=== PATIENT | male | born 1975 | race Caucasian/White ===

== ENCOUNTER 2019-08-06 15:23 | Inpatient (IN) | payer BC ==
[~2019-08-06] VITALS: Ht 165.1 cm; Wt 67.8 kg
--- NOTE | ~2019-08-06 | EKG ---
[place], [place] ELECTROCARDIOGRAM REPORT NAME: MAGUI WASHINGTON UNIT #: [id number] ROOM: [facility] DOCTOR: DENG DRAFT REPORT BIRTHDATE: [birth year] [facility] Test Date: 2019-08-06 Test Time: 15:51:44 Pat Name: MAGUI WASHINGTON Department: ED Room: [facility] Gender: M Pharmacy Technician Infusion: EDUARDO : 1975 Requested By: CASSIDY YORK DNP Order Number: [id number] Reading MD: Bebe Dillon Measurements Intervals [place] Rate: 60 P: 16 MS: 160 QRS: 62 QRSD: 96 T: 46 QT: 437 QTc: 437 Interpretive Statements Sinus rhythm Electronically Signed On 08-07-2019 11:09:12 PDT by Bebe Dillon CM:EKGRPT:ELECTROCARDIOGRAM REPORT [id number] CASSIDY YORK DNP EPIPHANY DRAFT REPORT CASSIDY YORK DNP
--- NOTE | ~2019-08-06 | CON ---
[place], [place] REPORT OF CONSULTATION NAME: MAGUI WASHINGTON UNIT #: [id number] ROOM: [facility] DOCTOR: STEPHANIE BEVERLY MD BIRTHDATE: [birth year] DOS: 08/07/2019 PULMONARY CONSULTATION EVALUATION AND MANAGEMENT REASON FOR CONSULTATION: Assess the patient for the recurrent pneumonia. HISTORY OF PRESENT ILLNESS: A 43-year-old white male patient who has been known with past history of nephritis with focal segmental glomerulonephrosis diagnosed in 2002, as per the patient. [place], recently moved to live in [place] with his girlfriend. He stated symptoms of getting general weakness and fatigue, coughing with clear sputum expectoration ongoing for the past 10 days. Symptoms noted gradually worsen associated with fever, increase sputum expectoration, shortness of breath and general weakness. The patient denies symptoms of chest pain. Denies symptoms of hemoptysis. He has been brought to the hospital for further assessment. The patient has been diagnosed with acute pneumonia and currently treated in the Intensive Care Unit. He denies any symptoms of wheezing. Shortness of breath occurred last couple of days that occurred with exertion and at rest. REVIEW OF SYSTEMS: CONSTITUTIONAL SYMPTOMS: The patient reported fever of 102 degrees Fahrenheit at home with feeling of general weakness and fatigue. Symptoms has been present 2 days off and on. EYES: Denies any discharge, redness or burning. EAR, NOSE, THROAT SYMPTOMS: Denies sore throat, hoarseness, otalgia, postnasal drainage or epistaxis. CARDIOVASCULAR: Denies anginal pain, edema, or pain in lower extremities. GASTROINTESTINAL SYMPTOMS: Denies dysphagia, nausea, vomiting, diarrhea, abdominal pain, hematemesis, melena, or hematochezia. GENITOURINARY SYMPTOMS: No dysuria, suprapubic pain, or hematuria. MUSCULOSKELETAL: No acute joint pain, redness, or tenderness. SKIN: No lesions or rashes reported. CENTRAL NERVOUS SYSTEM: The patient has been noted with history of migraine headache treated intermittently. There were no symptoms of focal neurologic deficit, seizures or diplopia reported. Remaining systems were reviewed. They were noted all negative. PAST MEDICAL HISTORY: Noted with history of: 1. Focal Segmental glomerulosclerosis. 2. Chronic nicotine dependence. 3. Essential hypertension. 4. Hyperlipidemia. 5. Questionable history of recurrent pneumonia. The patient reported pneumonia when he was 12 years old, then occurred. The patient was diagnosed with acute nephritis in 2002 and last time treated for acute pneumonia was in 04/2018. PAST SURGICAL HISTORY: Noted as: 1. Lumbar laminectomy. 2. Biopsy of the kidney as well. [place], [place] REPORT OF CONSULTATION NAME: MAGUI WASHINGTON UNIT #: [id number] ROOM: [facility] DOCTOR: STEPHANIE BEVERLY MD BIRTHDATE: [birth year] SOCIAL HISTORY: The patient is currently , lives at home. Denies history of alcohol use or illicit drug use. Tobacco use noted from age of [age] years old, 1 pack of cigarettes per day, active use. He does not have any significant occupational related work history. FAMILY HISTORY: History about father was unknown. Mother is living without any known medical illnesses. MEDICATIONS: The medications, which were listed from home as none regular medication reported. PHYSICAL EXAMINATION: GENERAL: A 43-year-old white male patient is currently lying in the bed. Height of 5 feet 5 inches, weight 149 pounds, BMI 24. VITAL SIGNS: Temperature noted 100.9 degree Fahrenheit to normal temperature, respiratory rate range between 14-24. The heart rate of 72-51. The blood pressure 123/57-116/69. Pulse oxygen saturation recorded on room air 98% on 3 liters nasal cannula was 94% saturation. HEENT: Examination shows head was atraumatic. Eyes nonicterus. NECK: Supple. CARDIOVASCULAR: S1, S2 is audible. LUNGS: Noted without any crackles, bilateral moderate expiratory wheezing was present. ABDOMEN: Soft, nontender. Bowel sounds present. EXTREMITIES: Without acute edema, clubbing, cyanosis. MUSCULOSKELETAL: Without acute deformities. CENTRAL NERVOUS SYSTEM: Cranial nerves 2-12 intact. No focal deficit. MUSCULOSKELETAL: Without acute deformity. SKIN: No lesions or rashes. LABORATORY DATA: Lactic acid 08/06/2019 on admission 2.5. CMP that was done yesterday on admission normal BUN and creatinine. Sodium 135. CBC: WBC count 27.3, hemoglobin, hematocrit and platelet count was normal at 88% segmented neutrophils. CBC of yesterday influenza A and B, nasal washing antigen negative. For surveillance lactic acid 2.1. IMAGING STUDIES: CT scan of the head and the cervical spine reported no acute abnormalities of the cervical spine. BMP that was done on 08/07/2019 is normal BUN and creatinine and glucose. Sodium 135. Urine culture preliminary noted no bacterial growth from yesterday. Two-view of the chest x-ray was noted with findings of a large area of consolidation, which was noted mass-like dense in the posterior subsegment of the right upper lobe. Small infiltration in the superior segment of the right lower lobe cannot be excluded. There were no visible pleural fluid significant on the chest x-ray. There were no past chest x-rays available for comparison. IMPRESSION: 1. The patient will be currently admitted to the hospital noted with acute pneumonia, community-acquired, likely cause with consideration of a [place], [place] REPORT OF CONSULTATION NAME: MAGUI WASHINGTON UNIT #: [id number] ROOM: [facility] DOCTOR: STEPHANIE BEVERLY MD BIRTHDATE: [birth year] streptococcal pneumonia and atypical organisms. 2. History of focal segmental glomerulosclerosis was also noted stable. 3. The patient with acute onset of chronic obstructive pulmonary disease/bronchial asthma, current admission and acute pneumonia. 4. History of chronic nicotine dependence. Currently, the patient is not noted with diagnosis of recurrent pneumonia, historically. PLAN OF MANAGEMENT: Continuation of the antibiotics, bronchodilators and oxygen supplementation at the present time. Bronchodilators to be continued. Collect the sputum for Gram stain and culture. Steroids will be added to treatment. Continue use of the DuoNeb. Other therapy, plan of management, additional treatment changes will be ordered based on the progression of his illness. Supportive care, plan of management, care plan for treatment, other therapies as ongoing. Urine strep antigen and legionella antigen will be ordered. Nicotine replacement patches were also ordered to overcome the nicotine withdrawal. Assessment and management discussed with the patient and his girlfriend with the patient in detail in the room personally. Thanks for allowing me to participate in the care of this patient. STEPHANIE MAGUIRE MD CM:CONSTR:REPORT OF CONSULTATION 1402 08/08/19 0107 interface
--- NOTE | ~2019-08-06 | PR ---
[place], [place] PROGRESS NOTE NAME: MAGUI WASHINGTON UNIT #: [id number] ROOM: [facility] DOCTOR: ANDREZ FELDMAN MD,STEPHANIE BIRTHDATE: [birth year] DOS: 08/08/2019 SUBJECTIVE: The patient noted comfortable at this time, resting on the bed this morning of assessment. He has been noted much better from yesterday. The coughing and wheezing noted decreased. Headache, which was reported by the patient yesterday was resolved significantly. There were no symptoms of hematemesis, melena, or hematochezia noted. There were no symptoms of diarrhea. The temperature was also noted normal. Remaining systems reviewed, noted all negative. OBJECTIVE: VITAL SIGNS: Temperature normal in the last 24 hours, respiratory rate 20, heart rate 90, blood pressure 120/64 recorded this morning. Pulse ox saturation recorded at rest on room air 92% saturation. HEENT: Examination shows head was atraumatic. Eyes nonicterus. NECK: Supple. CARDIOVASCULAR: S1, S2 audible. LUNGS: Noted with mild expiratory wheezing with crackles noted in the right lower lung. ABDOMEN: Soft, nontender. Bowel sounds present. EXTREMITIES: Without acute edema. MUSCULOSKELETAL: Without deformities. CENTRAL NERVOUS SYSTEM: Cranial nerves II-XII intact. VISIBLE SKIN: Without lesions or rashes. LABORATORY DATA: The patient's CBC: WBC count 9.3, hemoglobin 12.8. Platelet count was normal. BMP, glucose ____, BUN and creatinine were normal. Potassium 3.4. Urine culture, no bacterial growth was noted. Blood culture preliminary showed no bacterial growth. Final cultures are pending. Rest of the sputum, many white blood cells, few epithelial cells, moderate gram-positive cocci in pairs and clusters, moderate gram-positive bacilli. IMPRESSION: 1. The patient who has been currently noted with acute pneumonia, which has been noted with acute onset of chronic obstructive pulmonary disease or bronchial asthma exacerbation. 2. History of focal segmental glomerulonephritis. 3. Nicotine dependence. PLAN OF CARE: Continue the patient's current plan of management as in progress. Usual care, other therapy, plan of management. The chest x-ray was ordered to be done tomorrow morning to assess the progression of the pneumonia. The patient radiologically and clinically has shown significant reduction and improvement in respiratory symptoms in the last 24 hours with current treatment. No changes in the dose of steroids will be needed today. The dose will be decreased tomorrow depends on further improvement in the respiratory status. [place], [place] PROGRESS NOTE NAME: MAGUI WASHINGTON UNIT #: [id number] ROOM: [facility] DOCTOR: STEPHANIE BEVERLY MD BIRTHDATE: [birth year] STEPHANIE MAGUIRE MD CM:PNTRANS [id number] STEPHANIE FELDMAN MD 08/08/19 1435 interface
[2019-08-06 15:27] VITALS: BP 154/75
[2019-08-06 15:55] LABS: HEMOGLOBIN 16.3 g/dl (14.0-18.0); MEAN CELL VOLUME 99.4 fl (80.0-94.0); MEAN CORPUSCULAR HGB 33.1 pg (27.0-31.0); MEAN CORPUSCULAR HGB CONC 33.3 g/dl (33.0-37.0); MEAN PLATELET VOLUME 9.6 fl (9.6-12.3); PLATELET COUNT AUTOMATED 214 10*3/uL (130-400); RED BLOOD COUNT 4.93 10*6/uL (4.50-5.90); RED CELL DISTRI WIDTH 13.9 % (0-14.5); WHITE BLOOD COUNT 27.3 10*3/uL (4.8-10.8)
[2019-08-06 16:09] LABS: ACT PARTIAL THROMBO TIME 29.1 SECONDS (20.0-32.1); INTERNATIONAL NORM RATIO 1.2 (2.0-3.5)
[2019-08-06 16:11] LABS: ALBUMIN 3.3 gm/dl (3.1-4.5); ALKALINE PHOSPHATASE 98 U/L (45-117); BUN 13 mg/dl (7-24); CHLORIDE 100 mmol/L (98-107); CREATININE 1.17 mg/dL (0.70-1.30); LIPASE 62 U/L (73-393); POTASSIUM 4.3 mmol/L (3.5-5.1); SGOT/AST 27 IU/L (3-35); SGPT/ALT 24 U/L (12-78); SODIUM 135 mmol/L (136-145); TOTAL PROTEIN 7.8 gm/dL (6.4-8.2)
[2019-08-06 16:16] LABS: PLATELET SUFFICIENCY NORMAL (NORMAL); TOTAL CELLS COUNTED 100 #CELLS
[2019-08-06 16:18] LABS: TROPONIN I < 0.015 ng/ml (<0.045)
[2019-08-06 17:09] LABS: BILIRUBIN NEGATIVE (NEGATIVE); BLOOD 3+ (NEGATIVE); CLARITY CLEAR (CLEAR); COLOR YELLOW (YELLOW); GLUCOSE NEGATIVE (NEGATIVE); KETONE NEGATIVE (NEGATIVE); LEUKO ESTERASE NEGATIVE (NEGATIVE); NITRITE NEGATIVE (NEGATIVE); PH 6.5 (5.0-9.0); UROBILINOGEN 0.2 E.U./dl (0.2-1.0)
[2019-08-06 17:18] LABS: BACTERIA 1+; RBC 21-30 rbc/hpf (0-2)
[2019-08-06 19:20] VITALS: BP 123/57
--- NOTE | 2019-08-06 19:26 | NUR ---
REPORT CALLED TO ICU.
--- NOTE | 2019-08-06 19:31 | NUR ---
TRANSFERRED TI ICU ON MONITOR.
[2019-08-06 19:40] VITALS: BP 132/71
--- NOTE | 2019-08-06 19:40 | NUR ---
A 43, admitted to [facility]U, under the services of KYLAH Otto DO with a diagnosis of severe sepsis, pneumonia rml. Chief complaint is shortness of breath, headache x 2 days, fever 103, cough productive of coello mucous. Patient arrived via stretcher from ER. Monitor applied. Initial assessment completed. Vital signs taken and recorded. KYLAH OTTO DO notified of admission to the unit. Orders received. See assessment for past medical history, medications and allergies. Patient and/or family oriented to unit. [facility] visitation policy reviewed. Clothing/patient valuable form completed. DAMION VELARDE
--- NOTE | 2019-08-06 19:53 | NUR ---
PT TO CT SCAN VIA NURSE AND MONITOR.
--- NOTE | 2019-08-06 20:21 | NUR ---
ATTEMPTING TO CALL [facility] IN [place](NOW OFFICIALLY CALLED [facility]) THE PHARMACY CLOSED AT 6PM TODAY, WILL REOPEN TOMORROW AT 10AM AND ARE OPEN UNTIL 6PM. MEDICATION RECONCILLIATION UNABLE TO BE COMPLETED AT THIS TIME.
--- NOTE | 2019-08-06 20:59 | NUR ---
TYLENOL PO GIVEN FOR C/O HEADACHE & BACKPAIN RATES AN 8 BUT AFTER HE COMPLAINED HE WENT BACK TO SLEEP AND NURSE HAD TO WAKE HIM TO TAKE THE MEDS. WHEN ASKED ABOUT IF HE RECALLS CHOKING ON AND FOOD OR WATER AT ANY TIME AND HE GOT UPSET THAT HE WAS ASKED ABOUT IT AND RN ATTEMPTED TO EXPLAIN THE REASON AND HE CALMED SOME BUT SAID WITH AN ATTITUDE "HIS MEMORY OF THE LAST FEW DAYS ISN'T VERY GOOD."
--- NOTE | 2019-08-06 21:13 | NUR ---
DR WISDOM HERE. UPDATED ON PT CONDITION INCLUDING LACTIC ACID RESULT. ALSO, HE STATES TO CALL DR MAGUIRE IN AM WITH CONSULT.
--- NOTE | 2019-08-06 22:10 | NUR ---
TYLENOL APPEARS TO BE EFFECTIVE. PT DOZING. RR16/MIN, HR 69/MIN. BODY RELAXED. PULSE OX LOW 90'S WHILE ASLEEP.
--- NOTE | 2019-08-06 23:53 | NUR ---
FAN PROVIDED AND DILAUDID GIVEN AT 2300 WITH ASSESSMENT. PT MORE INTERACTIVE, JOKING WITH STAFF. HIS EYE CONTACT WITH THIS NURSE HAS IMPROVED. MEDICATION EFFECTIVE....PT APPEARS TO BE SLEEPING WITHOUT DISTRESS.
[2019-08-07] VITALS: BP 148/56
--- NOTE | 2019-08-07 02:19 | NUR ---
PT APPEARS COMFORTABLE. SLEEPING, WHILE LAYING ON HIS LT SIDE. HR REMAINS IN 60'S-70'S.
[2019-08-07 04:00] VITALS: BP 98/51
--- NOTE | 2019-08-07 04:11 | NUR ---
SLEEPING. PT DOES NOT APPEAR TO BE IN RESPIRATORY DISTRESS.
--- NOTE | 2019-08-07 05:20 | NUR ---
DILAUDID AT 0500 PER PT REQUEST FOR RECURRING 8/10 PAIN HEADACHE. RELIEF MET AND PT SAYS "THAT MEDICINE WORKS GOOD FOR A FEW HOURS".
[2019-08-07 06:16] LABS: BUN 10 mg/dl (7-24); CHLORIDE 103 mmol/L (98-107); POTASSIUM 4.1 mmol/L (3.5-5.1); SODIUM 135 mmol/L (136-145)
--- NOTE | 2019-08-07 06:50 | NUR ---
ATTEMPTED TO CALL DR MAGUIRE'S CELL PHONE. OBTAINED MESSAGE THAT WIRELESS CUSTOMER UNAVAILABLE AT THIS TIME. WILL ATTEMPT AGAIN BEFORE END OF MY SHIFT.
[2019-08-07 07:01] LABS: BASO # 0.1 10*3/uL (0.0-0.1); BASO % 0.3 % (0.0-1.0); HEMATOCRIT 41.3 % (42.0-52.0); HEMOGLOBIN 13.4 g/dl (14.0-18.0); LYMPH # 2.3 10*3/uL (1.3-4.4); LYMPH % 11.2 % (27.0-41.0); MEAN CELL VOLUME 100.2 fl (80.0-94.0); MEAN CORPUSCULAR HGB 32.5 pg (27.0-31.0); MEAN CORPUSCULAR HGB CONC 32.4 g/dl (33.0-37.0); MEAN PLATELET VOLUME 10.1 fl (9.6-12.3); MONO # 1.1 10*3/uL (0.1-1.0); MONO % 5.5 % (3.0-9.0); NEUT % 82.1 % (47.0-73.0); PLATELET COUNT AUTOMATED 176 10*3/uL (130-400); RED BLOOD COUNT 4.12 10*6/uL (4.50-5.90); RED CELL DISTRI WIDTH 14.1 % (0-14.5); WHITE BLOOD COUNT 20.7 10*3/uL (4.8-10.8)
--- NOTE | 2019-08-07 07:20 | NUR ---
I,AGAIN, ATTEMPTED TO CALL DR MAGUIRE TO NOTIFY OF CONSULT.
[2019-08-07 08:00] VITALS: BP 116/69
--- NOTE | 2019-08-07 09:00 | NUR ---
PT C/O SEVERE MARCH. CLAIMS IS WHOLE HEAD IS "KILLING ME...IT FEELS LIKE SOMEONE IS TRYING TO GOUGE MY EYES OUT...I'M ABOUT TO WIG OUT." UPDATED DR BEARD. ORDER RECEIVED TO GIVE A DOSE OF ORDERED PRN DILAUDID DOSE NOW.
--- NOTE | 2019-08-07 09:05 | NUR ---
MEDICATED PT PER PRN ORDER WITH DILAUDID FOR PT'S C/O SEVERE MARCH WORSE THAN A 10/10 ON PAIN SCALE.
--- NOTE | 2019-08-07 09:45 | NUR ---
PT STATES DILAUDID TOOK PAIN FROM 10+ TO 9 1/2.
--- NOTE | 2019-08-07 10:00 | NUR ---
DR OLSON IN TO SEE PT. NEW ORDERS RECEIVED.
--- NOTE | 2019-08-07 10:30 | NUR ---
CALLED TO NOTIFY DR MAGUIRE OF NEW CONSULT. HE STATED HW WILL BE HERE IN ABOUT 15 MINUTES.
--- NOTE | 2019-08-07 10:35 | NUR ---
DR FARLEY'S ANSWERING SERVICE NOTIFIED OF NEW CCONSULT.
--- NOTE | 2019-08-07 10:56 | NUR ---
MEDICATED PT PER PRN ORDER WITH FIORCET FOR PT'S C/O MARCH THAT RATES 9 1/2 ON PAIN SCALE.
--- NOTE | 2019-08-07 11:13 | NUR ---
DR MAGUIRE IN TO SEE PT.
[2019-08-07 12:00] VITALS: BP 114/68
--- NOTE | 2019-08-07 14:44 | NUR ---
PT'S FAMILY IN TO VISIT WITH HIM. NO ACUTE DISTRESS NOTED AT THIS TIME.
--- NOTE | 2019-08-07 15:30 | NUR ---
Pt started on flutter valve. Explained use and explained how often to use. Pt is on room air at 96%
[2019-08-07 16:00] VITALS: BP 111/66
--- NOTE | 2019-08-07 17:19 | NUR ---
MEDICATED PT PER PRN ORDER WITH FLEXERIL FOR C/O MUSCLE PAIN IN HIS BACK.
--- NOTE | 2019-08-07 18:14 | NUR ---
MEDICATED PT PER PRN ORDER WITH FIORCET FOR C/O MARCH. PT RATES PAIN 6/10 ON PAIN SCALE.
[2019-08-07 20:00] VITALS: BP 118/58
[2019-08-07] MEDS ORDERED: NEURONTIN600 MG PO (22:28)
--- NOTE | 2019-08-07 22:37 | NUR ---
RESTORIL GIVEN ORDERED PER PT REQUEST FOR SLEEP AID. HAYDEN KUMAR RN
--- NOTE | 2019-08-07 23:26 | NUR ---
PT. SLEEPING, RESTORIL EFFECTIVE.
[2019-08-08] VITALS: BP 90/39
--- NOTE | 2019-08-08 03:26 | NUR ---
DILAUDID GIVEN FOR COMPLAINTS OF BACK PAIN. HAYDEN KUMAR RN
--- NOTE | 2019-08-08 03:55 | NUR ---
PT. STATES DILAUDID EFFECTIVE FOR BACK PAIN
[2019-08-08 05:04] LABS: HEMATOCRIT 39.9 % (42.0-52.0); HEMOGLOBIN 12.8 g/dl (14.0-18.0); MEAN CELL VOLUME 99.8 fl (80.0-94.0); MEAN CORPUSCULAR HGB CONC 32.1 g/dl (33.0-37.0); MEAN PLATELET VOLUME 10.1 fl (9.6-12.3); PLATELET COUNT AUTOMATED 179 10*3/uL (130-400); RED CELL DISTRI WIDTH 13.6 % (0-14.5); WHITE BLOOD COUNT 9.3 10*3/uL (4.8-10.8)
[2019-08-08 05:28] LABS: BUN 10 mg/dl (7-24); CHLORIDE 104 mmol/L (98-107); CREATININE 0.99 mg/dL (0.70-1.30); POTASSIUM 3.4 mmol/L (3.5-5.1); SODIUM 137 mmol/L (136-145)
[2019-08-08 05:31] LABS: PLATELET SUFFICIENCY NORMAL (NORMAL); TOTAL CELLS COUNTED 100 #CELLS
[2019-08-08 08:00] VITALS: BP 120/64
--- NOTE | 2019-08-08 08:27 | NUR ---
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
[2019-08-08] MEDS ORDERED: PREDNISONE10 MG PO (10:24)
[2019-08-08] MEDS ORDERED: VITAMIN D-32000 UNI1 PO (10:24)
[2019-08-08] MEDS ORDERED: Vibra-Tab100 MG PO (10:24)
[2019-08-08] MEDS ORDERED: Fioricet 325 MG1 TAB PO (10:24)
--- NOTE | 2019-08-08 10:32 | NUR ---
DR BATRES IN TO SEE PT DC TO HOME
== END 2019-08-08 11:12 | disposition home or self-care (01) | DRG 871 ==
LOC: ED 15:23 → ICCU 17:03 → EDHOLD 17:03 → ICCU 18:55
PROVIDERS: Family Medicine; Internal Medicine; Nurse Practitioner Family; ADMIT Emergency Medicine
DX: A41.9 Sepsis, unspecified organism (principal); J18.1 Lobar pneumonia, unspecified organism; N17.9 Acute kidney failure, unspecified; J44.0 Chronic obstructive pulmonary disease with (acute) lower respiratory infection; J45.901 Unspecified asthma with (acute) exacerbation; R65.20 Severe sepsis without septic shock; E78.5 Hyperlipidemia, unspecified; I10 Essential (primary) hypertension; F17.210 Nicotine dependence, cigarettes, uncomplicated; R73.9 Hyperglycemia, unspecified; E83.41 Hypermagnesemia; R80.9 Proteinuria, unspecified; R31.9 Hematuria, unspecified; N05.1 Unspecified nephritic syndrome with focal and segmental glomerular lesions

== ENCOUNTER 2020-01-11 10:37 | Emergency (ER) | payer OTHER, BC ==
[~2020-01-11] VITALS: Ht 162.5 cm; Wt 72.6 kg
[~2020-01-11 10:37] MED LIST: Fioricet 325 MG1 TAB PO; NEURONTIN600 MG PO; PREDNISONE10 MG PO; VITAMIN D-32000 UNI1 PO; Vibra-Tab100 MG PO
[2020-01-11 11:09] LABS: HEMATOCRIT 44.3 % (42.0-52.0); HEMOGLOBIN 14.2 g/dl (14.0-18.0); MEAN CELL VOLUME 99.3 fl (80.0-94.0); MEAN CORPUSCULAR HGB 31.8 pg (27.0-31.0); MEAN CORPUSCULAR HGB CONC 32.1 g/dl (33.0-37.0); MEAN PLATELET VOLUME 9.3 fl (9.6-12.3); NUCLEATED RED BLOOD CELL 0.3 % (0.0-0.0); PLATELET COUNT AUTOMATED 312 10*3/uL (130-400); RED BLOOD COUNT 4.46 10*6/uL (4.50-5.90); RED CELL DISTRI WIDTH 13.3 % (0-14.5); WHITE BLOOD COUNT 14.7 10*3/uL (4.8-10.8)
[2020-01-11 11:18] LABS: ACT PARTIAL THROMBO TIME 24.5 SECONDS (20.0-32.1); INTERNATIONAL NORM RATIO 0.9 (2.0-3.5)
[2020-01-11 11:33] LABS: ALBUMIN 3.4 gm/dl (3.1-4.5); ALKALINE PHOSPHATASE 122 U/L (45-117); BUN 9 mg/dl (7-24); CHLORIDE 102 mmol/L (98-107); CREATININE 0.89 mg/dL (0.70-1.30); LIPASE 212 U/L (73-393); POTASSIUM 4.3 mmol/L (3.5-5.1); SGOT/AST 34 IU/L (3-35); SGPT/ALT 61 U/L (12-78); SODIUM 137 mmol/L (136-145); TOTAL PROTEIN 7.3 gm/dL (6.4-8.2)
[2020-01-11 11:35] LABS: ATYPICAL LYMPHS 1 % (0-0); PLATELET SUFFICIENCY NORMAL (NORMAL); TOTAL CELLS COUNTED 100 #CELLS
[2020-01-11 11:36] LABS: TROPONIN I < 0.015 ng/ml (<0.045)
[2020-01-11 11:39] LABS: URINE AMPHETAMINES < 1000 (1000ng/ml); URINE BARBITURATES < 200 (200ng/ml); URINE BENZODIAZEPINES < 200 (200ng/ml); URINE CANNABINOIDS (THC) < 50 (50ng/ml); URINE COCAINE < 300 (300ng/ml); URINE METHADONE > 300 (300ng/ml); URINE OPIATES < 300 (300ng/ml)
[2020-01-11 11:41] LABS: BILIRUBIN NEGATIVE (NEGATIVE); BLOOD TRACE-INTACT (NEGATIVE); CLARITY CLEAR (CLEAR); COLOR YELLOW (YELLOW); GLUCOSE NEGATIVE (NEGATIVE); KETONE NEGATIVE (NEGATIVE); LEUKO ESTERASE NEGATIVE (NEGATIVE); NITRITE NEGATIVE (NEGATIVE); PH 6.5 (5.0-9.0); SPECIFIC GRAVITY 1.015 (1.005-1.030); UROBILINOGEN < 0.2 E.U./dl (0.2-1.0); WBC 0-2 wbc/hpf (0-5)
[2020-01-11 11:42] LABS: URINE PHENCYCLIDINE < 25 (25ng/ml)
[2020-01-11] MEDS ORDERED: ATIVAN1 MG PO (13:21)
== END 2020-01-11 13:24 | disposition home or self-care (01) ==
LOC: ED 10:37
PROVIDERS: Emergency Medicine
DX: H11.31 Conjunctival hemorrhage, right eye (principal); F41.9 Anxiety disorder, unspecified; R56.9 Unspecified convulsions; R25.3 Fasciculation; I10 Essential (primary) hypertension